=== PATIENT | male | born 1970 ===

== ENCOUNTER 2018-09-17 16:48 | Emergency (ER) | payer MEDICAID ==
[2018-09-17 17:02] VITALS: BP 138/78; PULSE 81; RESP 18; TEMP 98.2; O2SAT 99
--- NOTE | 2018-09-17 17:12 | ED PDOC ---
HPI: CCC, URI, Sore Throat Time Seen by Provider: 09/17/18 17:10 Chief Complaint (Nursing): ENT Problem Chief Complaint (Provider): right ear fullness History Per: Patient (48 y/o male h/o Lupus on plaquenil here with right ear fullness ongoing x 2 weeks. Denies any URI/cough but notes nasal congestion mild.) Past Medical History Reviewed: Historical Data, Nursing Documentation, Vital Signs Vital Signs: Last Vital Signs Temp 98.2 F 09/17/18 17:00 Pulse 81 09/17/18 17:00 Resp 18 09/17/18 17:00 BP 138/78 09/17/18 17:00 Pulse Ox 99 09/17/18 17:00 - Surgical History Surgical History: No Surg Hx - Family History Family History: States: No Known Family Hx - Home Medications Home Medications: Ambulatory Orders Medication Instructions Recorded Pseudoephedrine [Sudafed Tab] 60 mg PO Q6 PRN #15 tab 09/17/18 - Allergies Allergies/Adverse Reactions: Allergies Allergy/AdvReac Type Severity Reaction Status Date / Time No Known Allergies Allergy Verified 09/17/18 17:00 Review of Systems ROS Statement: Except As Marked, All Systems Reviewed And Found Negative ENT: Positive for: Ear Pain Physical Exam - Reviewed Nursing Documentation Reviewed: Yes Vital Signs Reviewed: Yes - Physical Exam Appears: Positive for: Well, Non-toxic, No Acute Distress Head Exam: Positive for: ATRAUMATIC, NORMAL INSPECTION, NORMOCEPHALIC Skin: Positive for: Normal Color, Warm, DRY Eye Exam: Positive for: EOMI, Normal appearance, PERRL ENT: Positive for: TM Is/Are (decreased cone of light noted with no signs of erythema). Negative for: Normal ENT Inspection Neck: Positive for: Normal, Painless ROM Cardiovascular/Chest: Positive for: Regular Rate, Rhythm Respiratory: Positive for: CNT, Normal Breath Sounds Gastrointestinal/Abdominal: Positive for: Normal Exam, Soft Back: Positive for: Normal Inspection Extremity: Positive for: Normal ROM Neurologic/Psych: Positive for: Alert, Oriented - ECG O2 Sat by Pulse Oximetry: 99 Disposition - Clinical Impression Clinical Impression: Right ear pain, Nasal congestion - Patient ED Disposition Is Patient to be Admitted: No - Disposition Referrals: Shukri Landin MD [Staff Provider] - Disposition: Routine/Home Disposition Time: 17:11 Condition: FAIR Prescriptions: Pseudoephedrine [Sudafed Tab] 60 mg PO Q6 PRN #15 tab PRN Reason: Nasal Congestion Instructions: Sinusitis, Adult (DC)
== END 2018-09-17 17:10 | disposition home or self-care (01) ==
LOC: H.ER 16:48
DX: H92.01 Otalgia, right ear (principal); R09.81 Nasal congestion; M32.9 Systemic lupus erythematosus, unspecified